=== PATIENT | female | born 1985 | race Two or more races ===

== ENCOUNTER 2020-08-17 01:37 | Inpatient (IN) | payer OTHER ==
[~2020-08-17] VITALS: Ht 165.1 cm; Wt 113.7 kg
[2020-08-17 04:06] LABS: Basophils # (auto) 0 10 ^3/uL (0-0.2); Basophils % (auto) 0.3 % (0.0-2.0); Eosinophils # (auto) 0.1 10 ^3/uL (0-0.8); Eosinophils % (auto) 0.6 % (0.0-7.0); Hemoglobin 12.6 g/dL (12.2-16.2); Lymphocytes # (auto) 2.6 10 ^3/uL (0.4-5.4); Mean Corpuscular Hemoglobin 28.7 pg (28.0-32.0); Mean Corpuscular Hgb Conc. 32.3 g/dL (32.0-36.0); Mean Corpuscular Volume 88.9 fL (80.0-100.0); Monocytes # (auto) 0.6 10 ^3/uL (0-1.3); Monocytes % (auto) 3.7 % (0.0-12.0); Neutrophils # (auto) 13.1 10 ^3/uL (1.6-8.6); Neutrophils % (auto) 79.4 % (37.0-80.0); Platelet Count (auto) 378 10^3/uL (140-450); Red Blood Cells 4.39 10^6/uL (4.0-5.20); Red Cell Distribution Width 14.6 % (11.8-14.3); White Blood Cell 16.5 10^3/uL (4.4-10.8)
[2020-08-17 04:14] LABS: Urine Amorphous Crystal MOD /hpf (None Seen); Urine Bacteria FEW /hpf (None Seen); Urine Blood 2+ /uL (Negative); Urine Mucus FEW (None Seen); Urine Specific Gravity 1.013 (1.001-1.035); Urine WBC 11 /hpf (0 - 5)
[2020-08-17 04:23] LABS: Potassium 4.2 mmol/L (3.5-5.1)
[2020-08-17 04:27] LABS: Albumin 3.9 g/dL (3.4-5.0); BUN/Creatinine Ratio 19.4; Calcium 8.3 mg/dL (8.5-10.1)
[2020-08-17 04:30] LABS: Bilirubin, Total 0.4 mg/dL (0.2-1.0); Total Protein 8.1 g/dL (6.4-8.2)
[2020-08-17] MEDS ORDERED: KETOROLAC TROMETH 30 MG/ML 1ML VIAL IV ONE (07:30)
[2020-08-17] MEDS ORDERED: SODIUM CHLORIDE 0.9% 1,000 ML IV ONE ×2 (07:30→08:45)
[2020-08-17] MEDS ORDERED: cefTRIAXone 1GM/50ML D5W 50 ML IV ONE (07:45)
[2020-08-17] MEDS ORDERED: TAMSULOSIN HYDROCHLORIDE 0.4 MG CAP PO ONE (07:45)
[2020-08-17] MEDS ORDERED: ONDANSETRON HCL 4 MG/2 ML VIAL IV ONE (08:00)
[2020-08-17] MEDS ORDERED: MORPHINE SULFATE 4 MG/ML SYR/VIAL IV ONE (08:45)
[2020-08-17] MEDS ORDERED: ACETAMINOPHEN 500 MG TAB PO PRN (10:30)
[2020-08-17] MEDS ORDERED: ONDANSETRON HCL 4 MG/2 ML VIAL IV PRN (10:30)
[2020-08-17] MEDS: SODIUM CHLORIDE 0.9% 1,000 ML IV SCH ×2 (10:53→18:11)
[2020-08-17] MEDS: MORPHINE SULF INJ 2 MG/ML SYRINGE 1ML IV PRN ×2 (14:18→18:18)
[2020-08-17 15:32] VITALS: BP 125/79
--- NOTE | 2020-08-17 15:32 | NUR ---
Pt Arrived on Unit Pt arrived on Unit from ED via wheelchair. Pt is a/ox4 with no s/s of distress or SOB. Pt was able to ambulate to bed without any difficulty. Safety measures initiated with call light within reach, bed in lowest position and side rails up. Will continue to monitor.
[2020-08-17] MEDS ORDERED: CHOL20007 PO (15:53)
[2020-08-17] MEDS ORDERED: ACET-1156 PO (15:53)
[2020-08-17 17:00] VITALS: BP 146/78
[2020-08-17] MEDS: HYDROcodone-ACET 5/325MG TAB PO PRN (19:28)
--- NOTE | 2020-08-17 19:30 | NUR ---
Opening Shift Note Assumed care of patient, awake and alert. No S/S of distress/SOB. Pain management discussed with patient. Instructed on POC and to call for assist PRN, will continue to monitor for changes Q1hr and PRN.
[2020-08-17 20:00] VITALS: BP 139/83
[2020-08-17 22:00] VITALS: BP 139/83
[2020-08-17] MEDS: DOCUSATE SOD 100 MG CAP PO SCH (22:24)
[2020-08-18] MEDS: SODIUM CHLORIDE 0.9% 1,000 ML IV SCH ×3 (02:30→18:55)
[2020-08-18 05:00] VITALS: BP 124/83
--- NOTE | 2020-08-18 07:45 | NUR ---
Opening Shift Note: Assumed care of patient, awake and alert. No S/S of distress/SOB or pain. bed in lowest locked position, side rails up x 2, call light within reach. Patient instructed on POC and to call for assist PRN, will continue to monitor for changes Q1hr and PRN.
[2020-08-18 09:00] VITALS: BP 133/82
[2020-08-18] MEDS: DOCUSATE SOD 100 MG CAP PO SCH ×2 (10:10→21:57)
[2020-08-18] MEDS: MORPHINE SULF INJ 2 MG/ML SYRINGE 1ML IV PRN (10:10)
[2020-08-18] MEDS: FAMOTIDINE 20 MG TAB PO SCH (10:10)
[2020-08-18] MEDS: cefTRIAXone 1GM/50ML D5W 50 ML IV SCH (10:10)
[2020-08-18] MEDS ORDERED: MANNITOL 20% SOLN 100 gm/500ml 100 ML IV ONE (10:45)
--- NOTE | 2020-08-18 12:30 | NUR ---
SPOKE WITH DR. CHAIREZ. NEW ORDERS RECEIVED.
--- NOTE | 2020-08-18 12:41 | NUR ---
IN HOUSE COVID SWAB COLLECTED AND WALKED TO LAB.
[2020-08-18] MEDS ORDERED: LORATADINE 10 MG TAB PO ONE (12:45)
[2020-08-18 13:00] VITALS: BP 129/78
[2020-08-18] MEDS: HYDROcodone-ACET 5/325MG TAB PO PRN (15:11)
[2020-08-18 17:05] VITALS: BP 134/79
--- NOTE | 2020-08-18 18:05 | NUR ---
DR. BREWER: DR. MAST AT BEDSIDE.
--- NOTE | 2020-08-18 18:07 | NUR ---
PATIENT TRANSFERRED FROM FROM [facility] TO [facility].
[2020-08-18] MEDS: TAMSULOSIN HYDROCHLORIDE 0.4 MG CAP PO SCH (18:55)
--- NOTE | 2020-08-18 18:57 | NUR ---
CLOSING NOTE: PATIENT RESTING IN BED. NO S/S OF DISTRESS.
--- NOTE | 2020-08-18 19:40 | NUR ---
Opening Shift Note Assumed care of patient, awake and alert. No S/S of distress/SOB or pain. Updated on POC and to call for assist PRN, patient verbalized understanding. Call light within reach, bed in lowest position, will continue to monitor for changes Q1hr and PRN.
[2020-08-18 22:00] VITALS: BP 132/78
--- NOTE | 2020-08-19 | NUR ---
Informed hospitalist Varun about patient Covid positive result. Received order for Covid protocol
[2020-08-19] MEDS: SODIUM CHLORIDE 0.9% 1,000 ML IV SCH ×4 (02:19→23:03)
[2020-08-19 05:39] VITALS: BP 134/79
--- NOTE | 2020-08-19 07:00 | NUR ---
OPENING SHIFT NOTE RECEIVED REPORT ON THE PATIENT. AWAKE LYING IN BED. PATIENT SHOWS NO SIGNS OF DISTRESS AT THIS TIME. DISCUSSED THE PLAN OF CARE WITH THE PATIENT. BED IN LOWEST POSITION, SIDE RAIL UP X2, AND THE CALL LIGHT IS WITHIN REACH.
[2020-08-19 08:06] LABS: Basophils # (auto) 0 10 ^3/uL (0-0.2); Basophils % (auto) 0.5 % (0.0-2.0); Eosinophils # (auto) 0 10 ^3/uL (0-0.8); Eosinophils % (auto) 0.2 % (0.0-7.0); Hematocrit 31.5 % (36.0-46.0); Hemoglobin 10.4 g/dL (12.2-16.2); Lymphocytes # (auto) 1.3 10 ^3/uL (0.4-5.4); Lymphocytes % (auto) 30.6 % (10.0-50.0); Mean Corpuscular Hemoglobin 29.2 pg (28.0-32.0); Mean Corpuscular Volume 88.5 fL (80.0-100.0); Monocytes # (auto) 0.6 10 ^3/uL (0-1.3); Monocytes % (auto) 14.6 % (0.0-12.0); Neutrophils # (auto) 2.3 10 ^3/uL (1.6-8.6); Neutrophils % (auto) 54.1 % (37.0-80.0); Nucleated Red Blood Cells % 0.1 %; Platelet Count (auto) 269 10^3/uL (140-450); Red Blood Cells 3.56 10^6/uL (4.0-5.20); Red Cell Distribution Width 14.6 % (11.8-14.3); White Blood Cell 4.2 10^3/uL (4.4-10.8)
[2020-08-19 08:27] LABS: Potassium 3.2 mmol/L (3.5-5.1)
--- NOTE | 2020-08-19 08:30 | NUR ---
IS AT BEDSIDE. PATIENT INSTRUCTED ON HOW TO USE.
[2020-08-19 08:43] LABS: BUN/Creatinine Ratio 9.3; Bilirubin, Total 0.4 mg/dL (0.2-1.0); CRP High Sensitivity 5.05 mg/dL (< 0.3); Calcium 7.9 mg/dL (8.5-10.1); Magnesium 2.2 mg/dL (1.6-2.6); Total Protein 6.6 g/dL (6.4-8.2)
[2020-08-19 09:00] VITALS: BP 143/74
[2020-08-19] MEDS ORDERED: ASCORBIC ACID 1,000 MG TAB PO SCH (10:00)
[2020-08-19] MEDS ORDERED: CHOLECALCIFEROL (VITD3) 2,000 UNIT CAP PO SCH (10:00)
[2020-08-19] MEDS ORDERED: ZINC SULFATE 220mg CAP or TAB PO SCH (10:00)
[2020-08-19] MEDS: cefTRIAXone 1GM/50ML D5W 50 ML IV SCH (11:11)
[2020-08-19] MEDS: DOCUSATE SOD 100 MG CAP PO SCH ×2 (11:12→23:03)
[2020-08-19] MEDS: LORATADINE 10 MG TAB PO SCH (11:12)
[2020-08-19] MEDS: FAMOTIDINE 20 MG TAB PO SCH (11:13)
--- NOTE | 2020-08-19 12:11 | NUR ---
EV PRESSURE TESTER IN UROLOGY CALLED AND ASSESSED THE PATIENT'S PAIN. IF PATIENT WAS HAVING PAIN, SHE WILL NEED A NEPHROSTOMY TUBE PLACED. PATIENT IS NOT HAVING ANY PAIN. EV STATED THAT SINCE THE PATIENT WAS NOT HAVING IN PAIN, IT WAS OK TO DC.
[2020-08-19 13:00] VITALS: BP 130/85
[2020-08-19] MEDS: HYDROcodone-ACET 5/325MG TAB PO PRN (14:55)
--- NOTE | 2020-08-19 14:56 | NUR ---
DR VALADEZ AT BEDSIDE. NEW ORDERS RECEIVED.
[2020-08-19 15:24] LABS: Urine Bacteria NONE SEEN /hpf (None Seen); Urine Blood Negative /uL (Negative); Urine Specific Gravity 1.002 (1.001-1.035)
[2020-08-19 15:31] LABS: Urine WBC None Seen /hpf (0 - 5)
[2020-08-19 17:00] VITALS: BP 136/96
[2020-08-19] MEDS: TAMSULOSIN HYDROCHLORIDE 0.4 MG CAP PO SCH (17:59)
[2020-08-19 22:00] VITALS: BP 125/70
[2020-08-20] MEDS: SODIUM CHLORIDE 0.9% 1,000 ML IV SCH ×2 (04:05→09:01)
[2020-08-20 08:10] LABS: Basophils # (auto) 0 10 ^3/uL (0-0.2); Basophils % (auto) 0.3 % (0.0-2.0); Eosinophils # (auto) 0 10 ^3/uL (0-0.8); Eosinophils % (auto) 0.6 % (0.0-7.0); Hemoglobin 10.7 g/dL (12.2-16.2); Lymphocytes # (auto) 1.8 10 ^3/uL (0.4-5.4); Lymphocytes % (auto) 36.4 % (10.0-50.0); Mean Corpuscular Hemoglobin 29.4 pg (28.0-32.0); Mean Corpuscular Hgb Conc. 33.4 g/dL (32.0-36.0); Mean Corpuscular Volume 87.9 fL (80.0-100.0); Monocytes # (auto) 0.5 10 ^3/uL (0-1.3); Monocytes % (auto) 9.9 % (0.0-12.0); Neutrophils # (auto) 2.6 10 ^3/uL (1.6-8.6); Neutrophils % (auto) 52.8 % (37.0-80.0); Nucleated Red Blood Cells % 0.2 %; Platelet Count (auto) 278 10^3/uL (140-450); Red Blood Cells 3.64 10^6/uL (4.0-5.20); Red Cell Distribution Width 14.6 % (11.8-14.3)
[2020-08-20 08:29] LABS: Potassium 3.2 mmol/L (3.5-5.1)
[2020-08-20 08:55] VITALS: BP 130/74
[2020-08-20] MEDS: DOCUSATE SOD 100 MG CAP PO SCH (09:00)
[2020-08-20] MEDS: LORATADINE 10 MG TAB PO SCH (09:00)
[2020-08-20] MEDS: cefTRIAXone 1GM/50ML D5W 50 ML IV SCH (09:00)
[2020-08-20] MEDS: FAMOTIDINE 20 MG TAB PO SCH (09:01)
[2020-08-20] MEDS ORDERED: POTASSIUM CHL 20 Meq TABLET PO ONE (10:45)
== END 2020-08-20 14:07 | disposition home or self-care (01) | DRG 693 ==
LOC: ER 01:37 → OVERFLOW 01:38 → WEST WING 15:38 → TELE-WESTW 08-19 02:00
PROVIDERS: ADMIT Nurse Practitioner Acute Care; ATTEND Internal Medicine
DX: N13.2 Hydronephrosis with renal and ureteral calculous obstruction (principal); U07.1 COVID-19; Z68.41 Body mass index [BMI] 40.0-44.9, adult; R65.10 Systemic inflammatory response syndrome (SIRS) of non-infectious origin without acute organ dysfunction; E86.0 Dehydration; E66.01 Morbid (severe) obesity due to excess calories; Z80.49 Family history of malignant neoplasm of other genital organs; Z83.3 Family history of diabetes mellitus; Z90.49 Acquired absence of other specified parts of digestive tract; Z79.899 Other long term (current) drug therapy; Z84.1 Family history of disorders of kidney and ureter; Z83.49 Family history of other endocrine, nutritional and metabolic diseases; N30.90 Cystitis, unspecified without hematuria
CPT/HCPCS: 36415; 71045; 74176; 76775; 80048; 80053; 81001; 81025; 82728; 83605; 83615; 83735; 84443; 85025; 85379; 86141; 87086; 96361; 96365; 96375; 96376; G0378; J0696; J1885; J2405

== ENCOUNTER 2020-09-06 08:45 | Inpatient (IN) | payer OTHER ==
[~2020-09-06] VITALS: Ht 165.1 cm; Wt 108.9 kg
[~2020-09-06 08:45] MED LIST: ACET-1156 PO; CHOL20007 PO
[2020-09-06 11:02] LABS: Urine Bacteria FEW /hpf (None Seen); Urine Blood TRACE /uL (Negative); Urine Specific Gravity 1.002 (1.001-1.035); Urine WBC <1 /hpf (0 - 5)
[2020-09-06] MEDS ORDERED: KETOROLAC TROMETH 60MG/2ML VIAL IM ONE (15:45)
[2020-09-06 16:15] LABS: Basophils # (auto) 0 10 ^3/uL (0-0.2); Basophils % (auto) 0.3 % (0.0-2.0); Eosinophils # (auto) 0.2 10 ^3/uL (0-0.8); Eosinophils % (auto) 1.4 % (0.0-7.0); Hematocrit 34.5 % (36.0-46.0); Hemoglobin 11.4 g/dL (12.2-16.2); Lymphocytes # (auto) 2.9 10 ^3/uL (0.4-5.4); Lymphocytes % (auto) 23.3 % (10.0-50.0); Mean Corpuscular Hemoglobin 28.9 pg (28.0-32.0); Mean Corpuscular Hgb Conc. 33.2 g/dL (32.0-36.0); Mean Corpuscular Volume 87.1 fL (80.0-100.0); Monocytes # (auto) 0.9 10 ^3/uL (0-1.3); Neutrophils # (auto) 8.5 10 ^3/uL (1.6-8.6); Nucleated Red Blood Cells % 0.1 %; Platelet Count (auto) 393 10^3/uL (140-450); Red Blood Cells 3.96 10^6/uL (4.0-5.20); Red Cell Distribution Width 14.1 % (11.8-14.3); White Blood Cell 12.5 10^3/uL (4.4-10.8)
[2020-09-06 16:27] LABS: Albumin 3.7 g/dL (3.4-5.0); Calcium 8.5 mg/dL (8.5-10.1); Potassium 3.7 mmol/L (3.5-5.1)
[2020-09-06 16:32] LABS: BUN/Creatinine Ratio 13.1; Bilirubin, Total 0.6 mg/dL (0.2-1.0); Total Protein 8.1 g/dL (6.4-8.2)
[2020-09-06] MEDS ORDERED: TAMSULOSIN HYDROCHLORIDE 0.4 MG CAP PO ONE (17:15)
[2020-09-06] MEDS ORDERED: SODIUM CHLORIDE 0.9% 1,000 ML IV ONE (17:15)
[2020-09-06 17:56] LABS: Amphetamine Screen, Urine NEGATIVE (NEGATIVE); Barbiturate Scree,Urine NEGATIVE (NEGATIVE); Benzodiazephine Screen, Urine NEGATIVE (NEGATIVE); Cannabinoid Screen, Urine NEGATIVE (NEGATIVE); Cocaine Screen, Urine NEGATIVE (NEGATIVE); Opiate Scree,Urine NEGATIVE (NEGATIVE); Phencyclidine Screen, Urine NEGATIVE (NEGATIVE)
[2020-09-06] MEDS ORDERED: MORPHINE SULF INJ 2 MG/ML SYRINGE 1ML IV PRN (21:45)
[2020-09-06] MEDS ORDERED: DOCUSATE SOD 100 MG CAP PO PRN (21:45)
[2020-09-06] MEDS ORDERED: MORPHINE SULFATE 4 MG/ML SYR/VIAL IV PRN (21:45)
[2020-09-06] MEDS ORDERED: ONDANSETRON HCL 4 MG/2 ML VIAL IV PRN (21:45)
[2020-09-06] MEDS ORDERED: ACETAMINOPHEN 325 MG TAB PO PRN (21:45)
[2020-09-06] MEDS ORDERED: NITROGLYCERIN 0.4 MG SL TAB SL PRN (21:45)
[2020-09-07 01:01] LABS: Basophils # (auto) 0 10 ^3/uL (0-0.2); Basophils % (auto) 0.2 % (0.0-2.0); Eosinophils # (auto) 0.2 10 ^3/uL (0-0.8); Hematocrit 32.3 % (36.0-46.0); Hemoglobin 10.9 g/dL (12.2-16.2); Lymphocytes # (auto) 3.7 10 ^3/uL (0.4-5.4); Lymphocytes % (auto) 31.2 % (10.0-50.0); Mean Corpuscular Hemoglobin 29.6 pg (28.0-32.0); Mean Corpuscular Hgb Conc. 33.9 g/dL (32.0-36.0); Mean Corpuscular Volume 87.4 fL (80.0-100.0); Monocytes # (auto) 0.9 10 ^3/uL (0-1.3); Neutrophils # (auto) 6.9 10 ^3/uL (1.6-8.6); Neutrophils % (auto) 58.6 % (37.0-80.0); Platelet Count (auto) 367 10^3/uL (140-450); White Blood Cell 11.9 10^3/uL (4.4-10.8)
[2020-09-07 01:17] LABS: Albumin 3.5 g/dL (3.4-5.0); BUN/Creatinine Ratio 20.6; Calcium 8.5 mg/dL (8.5-10.1); Potassium 3.6 mmol/L (3.5-5.1)
[2020-09-07 01:19] LABS: Bilirubin, Total 0.4 mg/dL (0.2-1.0); Total Protein 7.3 g/dL (6.4-8.2)
[2020-09-07] MEDS: FAMOTIDINE 20 MG TAB PO SCH ×3 (06:02→22:00)
[2020-09-07] MEDS ORDERED: cefTRIAXone 1GM/50ML D5W 50 ML IV SCH (09:00)
[2020-09-07] MEDS: HYDROcodone-ACET 5/325MG TAB PO PRN ×3 (09:39→23:25)
[2020-09-07 10:12] LABS: Basophils # (auto) 0 10 ^3/uL (0-0.2); Basophils % (auto) 0.3 % (0.0-2.0); Eosinophils # (auto) 0.2 10 ^3/uL (0-0.8); Hematocrit 33.6 % (36.0-46.0); Hemoglobin 11.1 g/dL (12.2-16.2); Lymphocytes # (auto) 2.4 10 ^3/uL (0.4-5.4); Lymphocytes % (auto) 27.2 % (10.0-50.0); Mean Corpuscular Hemoglobin 29.4 pg (28.0-32.0); Mean Corpuscular Hgb Conc. 33.1 g/dL (32.0-36.0); Mean Corpuscular Volume 88.7 fL (80.0-100.0); Monocytes # (auto) 0.7 10 ^3/uL (0-1.3); Monocytes % (auto) 7.6 % (0.0-12.0); Neutrophils # (auto) 5.6 10 ^3/uL (1.6-8.6); Neutrophils % (auto) 62.9 % (37.0-80.0); Platelet Count (auto) 369 10^3/uL (140-450); Red Blood Cells 3.78 10^6/uL (4.0-5.20); Red Cell Distribution Width 14.1 % (11.8-14.3); White Blood Cell 8.9 10^3/uL (4.4-10.8)
[2020-09-07 10:27] LABS: Potassium 3.9 mmol/L (3.5-5.1)
[2020-09-07 10:56] LABS: Albumin 3.6 g/dL (3.4-5.0); BUN/Creatinine Ratio 20.7; Bilirubin, Total 0.4 mg/dL (0.2-1.0); Calcium 8.7 mg/dL (8.5-10.1); Total Protein 7.6 g/dL (6.4-8.2)
[2020-09-07] MEDS ORDERED: KETOROLAC TROMETH 30 MG/ML 1ML VIAL IV PRN (17:15)
[2020-09-07] MEDS ORDERED: MANNITOL FTV 25% 12.5 GM/50 ML 50 ML IV ONE (17:15)
[2020-09-07] MEDS ORDERED: SODIUM CHLORIDE 0.9% 1,000 ML IV ONE (17:15)
[2020-09-07] MEDS ORDERED: TAMSULOSIN HYDROCHLORIDE 0.4 MG CAP PO SCH (18:00)
[2020-09-07 19:45] VITALS: BP 136/87
== END 2020-09-07 09:00 | disposition home or self-care (01) | DRG 872 ==
LOC: ER 08:45 → TELE 08:46
PROVIDERS: ADMIT Nurse Practitioner Family; ATTEND Nurse Practitioner Family
DX: A41.9 Sepsis, unspecified organism (principal); N13.6 Pyonephrosis; Z83.3 Family history of diabetes mellitus; E66.01 Morbid (severe) obesity due to excess calories; Z80.49 Family history of malignant neoplasm of other genital organs; Z87.442 Personal history of urinary calculi; N18.2 Chronic kidney disease, stage 2 (mild)
CPT/HCPCS: 36415; 74176; 76775; 80053; 80307; 81001; 81025; 83605; 85025; 96360; 96372; G0378; J0696; J1885

== ENCOUNTER 2021-02-23 18:18 | Emergency (ER) | payer OTHER ==
[~2021-02-23] VITALS: Ht 165.1 cm; Wt 108.9 kg
[2021-02-23] MEDS ORDERED: SODIUM CHLORIDE 0.9% 1,000 ML IV ONE (19:00)
[2021-02-23 19:18] LABS: Urine Bacteria NONE SEEN /hpf (None Seen); Urine Blood Negative /uL (Negative); Urine Specific Gravity 1.008 (1.001-1.035); Urine WBC 2 /hpf (0 - 5)
[2021-02-23 19:25] LABS: Basophils # (auto) 0.1 10 ^3/uL (0-0.2); Basophils % (auto) 0.4 % (0.0-2.0); Eosinophils # (auto) 0 10 ^3/uL (0-0.8); Eosinophils % (auto) 0.3 % (0.0-7.0); Hematocrit 38.2 % (36.0-46.0); Hemoglobin 12.8 g/dL (12.2-16.2); Lymphocytes # (auto) 2.3 10 ^3/uL (0.4-5.4); Lymphocytes % (auto) 18.8 % (10.0-50.0); Mean Corpuscular Hemoglobin 29.4 pg (28.0-32.0); Mean Corpuscular Hgb Conc. 33.5 g/dL (32.0-36.0); Mean Corpuscular Volume 87.6 fL (80.0-100.0); Monocytes # (auto) 0.8 10 ^3/uL (0-1.3); Monocytes % (auto) 6.4 % (0.0-12.0); Neutrophils # (auto) 9.2 10 ^3/uL (1.6-8.6); Neutrophils % (auto) 74.1 % (37.0-80.0); Nucleated Red Blood Cells % 0.1 %; Platelet Count (auto) 363 10^3/uL (140-450); Red Blood Cells 4.36 10^6/uL (4.0-5.20); Red Cell Distribution Width 14.6 % (11.8-14.3); White Blood Cell 12.3 10^3/uL (4.4-10.8)
[2021-02-23 19:43] LABS: Albumin 3.9 g/dL (3.4-5.0); Calcium 8.8 mg/dL (8.5-10.1); Potassium 3.6 mmol/L (3.5-5.1)
[2021-02-23 19:46] LABS: BUN/Creatinine Ratio 10.7; Bilirubin, Total 0.8 mg/dL (0.2-1.0); Total Protein 8.2 g/dL (6.4-8.2)
[2021-02-23] MEDS ORDERED: ONDANSETRON HCL 4 MG/2 ML VIAL IV ONE (20:45)
[2021-02-23] MEDS ORDERED: DICYCLOMINE HCL (10MG/ML) 2 ML AMPULE IM ONE (20:45)
[2021-02-23 23:10] VITALS: BP 117/72
== END 2021-02-24 00:19 | disposition home or self-care (01) ==
LOC: ER 18:19
DX: K52.9 Noninfective gastroenteritis and colitis, unspecified (principal); Z90.49 Acquired absence of other specified parts of digestive tract; Z87.442 Personal history of urinary calculi; Z79.899 Other long term (current) drug therapy; Z98.890 Other specified postprocedural states
CPT/HCPCS: 36415; 80053; 81001; 83690; 83735; 84702; 85025; 96361; 96372; 96374; 99284; J0500; J2405; J7030

== ENCOUNTER 2021-06-12 22:00 | Emergency (ER) | payer OTHER ==
[~2021-06-12] VITALS: Ht 165.1 cm; Wt 112.0 kg
[2021-06-12] MEDS ORDERED: FAMOTIDINE (10MG/ML) 2ML VL IV ONE (22:30)
[2021-06-12] MEDS ORDERED: EPINEPHrine HCL 1 MG/1 ML AMP IM ONE (22:30)
[2021-06-12] MEDS ORDERED: diphenhdrAMINE HCL 50 MG/1 ML VL IV ONE (22:30)
[2021-06-12] MEDS ORDERED: methylPREDNISolone SOD SUCC 125 MG/2 ML VL IV ONE (22:30)
[2021-06-12 23:23] LABS: Basophils # (auto) 0.1 10 ^3/uL (0-0.2); Basophils % (auto) 1.1 % (0.0-2.0); Eosinophils # (auto) 0.1 10 ^3/uL (0-0.8); Eosinophils % (auto) 0.5 % (0.0-7.0); Hematocrit 38.9 % (36.0-46.0); Hemoglobin 12.8 g/dL (12.2-16.2); Lymphocytes # (auto) 3.8 10 ^3/uL (0.4-5.4); Lymphocytes % (auto) 30.2 % (10.0-50.0); Mean Corpuscular Hemoglobin 28.9 pg (28.0-32.0); Mean Corpuscular Volume 87.7 fL (80.0-100.0); Monocytes # (auto) 0.4 10 ^3/uL (0-1.3); Monocytes % (auto) 3.4 % (0.0-12.0); Neutrophils # (auto) 8.2 10 ^3/uL (1.6-8.6); Neutrophils % (auto) 64.8 % (37.0-80.0); Nucleated Red Blood Cells % 0.1 %; Red Blood Cells 4.44 10^6/uL (4.0-5.20); Red Cell Distribution Width 14.8 % (11.8-14.3); White Blood Cell 12.6 10^3/uL (4.4-10.8)
[2021-06-12 23:36] LABS: Calcium 8.6 mg/dL (8.5-10.1); Potassium 3.6 mmol/L (3.5-5.1)
[2021-06-12 23:39] LABS: Albumin 3.5 g/dL (3.4-5.0); BUN/Creatinine Ratio 21.1
[2021-06-12 23:45] LABS: Bilirubin, Total 0.5 mg/dL (0.2-1.0); Total Protein 7.8 g/dL (6.4-8.2)
[2021-06-13 02:05] VITALS: BP 132/69
== END 2021-06-13 02:05 | disposition home or self-care (01) ==
LOC: ER 22:00
DX: L50.0 Allergic urticaria (principal); Z79.899 Other long term (current) drug therapy; Z87.442 Personal history of urinary calculi; Z90.49 Acquired absence of other specified parts of digestive tract; Z98.890 Other specified postprocedural states
CPT/HCPCS: 36415; 80053; 85025; 96372; 96374; 96375; 99284; J0171; J1200; J2930; J3490; J7030

== ENCOUNTER 2024-09-29 16:05 | Emergency (ER) | payer OTHER ==
[~2024-09-29] VITALS: Ht 165.1 cm; Wt 121.0 kg
[~2024-09-29 16:05] MED LIST changes: -ACET-1156 PO; +ACET-1881 PO
--- NOTE | 2024-09-29 16:52 | ED.PDOC ---
History of Present Illness HPI Comments 38F presents to the ER w/ spouse and no prior Hx associated to the c/c of a VENTURA. Pt reports on having an immediate VENTURA which started at 1300 which was pressure- like, as well as the pt's, vision was blurry. Pt notes that she dd call her [facility] who did inform the pt to go to the ER due from the symptoms. SHx of BTL, Yuridia and . Denies chills, fever, N/V/D, SOB, CP or other associated symptom's, modifiers, or recent injuries or sick contact at this time. Chief Complaint: Headache Time Seen by MD: 16:40 Primary Care Provider: NONE Reviewed Notes: Nurses Notes, Medications, Allergies Allergies: Coded Allergies: NO KNOWN ALLERGIES (Unverified , 10/30/11) Home Meds Reported Medications Cholecalciferol (VITAMIN D3) 2,000 Unit Tab, 1 TAB PO DAILY, #30 TAB 5 Refills 08/17/20 Acetaminophen (Acetaminophen) 325 Mg Tab, 325 MG PO Q4HP PRN for MILD PAIN for 30 Days, MG 0 Refills 08/17/20 Information Source: Patient, Spouse Mode of Arrival: Ambulatory Severity: Moderate Timing: Hours Duration: Since onset, Hours Prehospital treatment: None Past Medical History Surgical History: BTL, Cholecystectomy, SEASONING SPRAYER History: No Pertinent SEASONING SPRAYER History Family History Family History: Reviewed,noncontributory to illness, Unknown Social History Smoker: Non-Smoker Alcohol: Denies ETOH Use Drugs: Denies Drug Use Lives In: Home Constitutional: denies: chills, diaphoresis, fatigue, fever, malaise, sweats, weakness, others EENTM: reports: blurred vision; denies: double vision, ear bleeding, ear discharge, ear drainage, ear pain, ear ringing, eye pain, eye redness, hearing loss, mouth pain, mouth swelling, nasal discharge, nose bleeding, nose congestion, nose pain, photophobia, tearing, throat pain, throat swelling, voice changes, others Respiratory: denies: cough, hemoptysis, orthopnea, SOB at rest, shortness of breath, SOB with excertion, stridor, wheezing, others Cardiovascular: denies: chest pain, dizzy spells, diaphoresis, Dyspnea on exertion, edema, irregular heart beat, left arm pain, lightheadedness, palpitations, PND, syncope, others Gastrointestinal: denies: abdomen distended, abdominal pain, blood streaked bowels, constipated, diarrhea, dysphagia, difficulty swallowing, hematemesis, melena, nausea, poor appetite, poor fluid intake, rectal bleeding, rectal pain, vomiting, others Genitourinary: denies: abnormal vagina bleeding, burning, dyspareunia, dysuria, flank pain, frequency, hematuria, incontinence, pain, , vagina discharge, urgency, others Neurological: reports: headache; denies: dizziness, fainting, left sided numbness, left sided weakness, numbness, paresthesia, pre-existing deficit, right sided numbness, right sided weakness, seizure, speech problems, tingling, tremors, weakness, others Musculoskeletal: denies: back pain, gout, joint pain, joint swelling, muscle pain, muscle stiffness, neck pain, others Integumetry: denies: bruises, change in color, change in hair/nails, dryness, laceration, lesions, lumps, rash, wounds, others Allergic/Immunocompromised: denies: Difficulty Healing, Frequent Infections, Hives, Itching, others Hematologic/Lymphatic: denies: anemia, blood clots, easy bleeding, easy bruising, swollen glands, others Endocrine: denies: excessive hunger, excessive sweating, excessive thirst, excessive urination, flushing, intolerance to cold, intolerance to heat, unexplained weight gain, unexplained weight loss, others Psychiatric: denies: anxiety, bipolar disorder, depression, hopeless, panic disorder, schizophrenia, sleepless, suicidal, others All Other Systems: Reviewed and Negative Physical Exam General Appearance: No Apparent Distress, Normal HEENT: Normal ENT Inspection, Pharynx Normal, TMs Normal Neck: Full Range of Motion, Non-Tender, Normal, Normal Inspection Respiratory: Chest Non-Tender, Lungs Clear, No Accessory Muscle Use, No Respiratory Distress, Normal Breath Sounds Cardiovascular: No Edema, No JVD, No Murmur, No Gallop, Normal Peripheral Pulses, Regular Rate/Rhythm Breast Exam: Deferred Gastrointestinal: No Organomegaly, Non Tender, No Pulsatile Mass, Normal Bowel Sounds, Soft Genitalia: Deferred Pelvic: Deferred Rectal: Deferred Extremities: No calf tenderness, Normal capillary refill, Normal inspection, Normal range of motion, Non-tender, No pedal edema Musculoskeletal : Apperance: Normal Neurologic: Alert, 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 Was a procedure done?: No Differential Dx Considerations may include: migraines, tension headaches, cva, intracranial bleed, brain lesion. anxiety, co poisoning, stress reaction X-Ray, Labs, Meds, VS Vital Signs Date Time Temp Pulse Resp B/P (MAP) Pulse Ox O2 Delivery O2 Flow Rate FiO2 09/29/24 18:18 94 17 100 Room Air 09/29/24 18:18 98.7 94 17 158/89 (112) 100 98.7 09/29/24 16:35 98.4 92 18 163/105 (124) 98 Time of 1ST Reevaluation: 17:10 Reevaluation 1ST: Unchanged Time of 2ND Reevaluation: 18:29 Reevaluation 2ND: Improved Patient Education/Counseling: Diagnosis, Treatment, Prognosis Family Education/Counseling: Diagnosis, Treatment, Prognosis Additional Information - I reviewed the following notes from patient's past medical encounters:06/12/21 - The following tests were ordered, and results were reviewed by me: PHA - Additional information was gathered from interviewing the following inde pendent Historian: Family - I discussed treatments and results with medical personnel and: (family) pt reports she has a lot of stress at work. she has a history of anxiety and migraines. her headache is similar to her prior migraines. her head ct is unr emarkable. she has no neurologic symptoms and once she found out her head ct is unremarkable, declined any prescriptions and wants to go home Departure 1 Departure Time of Disposition: 18:30 Impression: Primary Impression: Headache Additional Impression: Anxiety Disposition: 01 HOME / SELF CARE / HOMELESS Condition: Good Discharged With: Self, Spouse Critical Care Note Critical Care Time?: Yes (45 min-critical care time only) Critical care comment: due to concerns for patient's condition deteriorating, the care required my highest level of attention and readiness to intervene. i assessed the patient's condition, ordered the proper tests and treatments, reassessed for response and reviewed the results. i communicated with medical personnel and formulated a plan of care. total critical care time does not include any procedures Stability Stability form required: No I personally scribed for JOANNE DUMONT MD ([email or web address]) on 09/29/24 at 16:52. Electronically submitted by Sixto Cohn ([email or web address]). JOANNE DUMONT MD Sep 29, 2024 16:52
--- NOTE | 2024-09-29 17:07 | DVH ---
EXAM: CT HEAD WITHOUT CONTRAST INDICATION: headache TECHNIQUE: CT of the head without intravenous contrast. Radiation dose : Head: CT Dose: CTDI volume is 58 mGy. Dose-length product is 1027.08 mGy*cm The dose indicators for CT are the volume computed tomography (CT) dose index (CTDIvol) and the dose length product (DLP), and are measured in units of mGy and mGy-cm, respectively. These indicators are not patient dose, but values generated from the CT scanner acquisition factors. The report includes radiation exposure data for exposures received during this examination. COMPARISON: None FINDINGS: There is no evidence of acute intracranial hemorrhage, extra-axial collection, mass effect, midline s hift, herniation or hydrocephalus. The ventricles, sulci and cisterns are age appropriate. The kramer-white differentiation is intact. The visualized paranasal sinuses and mastoid air cells are clear. The surrounding soft tissues and osseous structures are unremarkable. IMPRESSION: 1. No acute intracranial abnormality. Radiation optimization: All CT scans at this facility use at least one of these dose optimization ran hniques: Automated exposure control mA and/or kV adjustment per patient size (includes targeted exams where dose is matched to clinical indication) or iterative reconstruction. HS:Y
[2024-09-29] MEDS: KETOROLAC TROMETH 60MG/2ML VIAL IM ONE (18:16)
[2024-09-29] MEDS: ONDANSETRON ODT 4 MG TAB PO ONE (18:17)
[2024-09-29 18:18] VITALS: BP 158/89; PULSE 94; RESP 17; TEMP 98.7; O2SAT 100
== END 2024-09-29 18:35 | disposition home or self-care (01) ==
LOC: ER 16:09
DX: R51.9 Headache, unspecified (principal); F41.9 Anxiety disorder, unspecified; Z90.49 Acquired absence of other specified parts of digestive tract; Z98.51 Tubal ligation status; Z98.890 Other specified postprocedural states
CPT/HCPCS: 70450; 99291; J1885; Q0162